=== PATIENT | female | born 1980 | race African-American/Black ===

== ENCOUNTER 2016-10-06 19:07 | Emergency (ER) | payer MEDICAID ==
[2016-10-06 20:16] LABS: ABSOLUTE BASOPHILS # (AUTO) 0.1 10^3/uL (0.0-0.2); ABSOLUTE EOSINOPHILS # (AUTO) 0.2 10^3/uL (0.0-0.6); ABSOLUTE LYMPHOCYTES (AUTO) 2.4 10^3/uL (0.5-4.7); ABSOLUTE MONOCYTES (AUTO) 0.5 10^3/uL (0.1-1.4); ABSOLUTE NEUT (AUTO) 6.6 10^3/uL (1.7-8.2); BASOPHILS % (AUTO) 0.7 % (0-2); EOSINOPHILS % (AUTO) 2.3 % (0-6); HEMOGLOBIN 13.4 g/dL (12.0-15.5); HGB HCT DIFFERENCE -0.8; LYMPHOCYTES % (AUTO) 24.6 % (13-45); MEAN CORPUSCULAR HGB CONC 32.7 g/dL (32.0-36.0); MEAN CORPUSCULAR VOLUME 95 fl (80-97); MONOCYTES % (AUTO) 5.2 % (3-13); RED BLOOD COUNT 4.33 10^6/uL (3.72-5.28); RED CELL DISTRIBUTION WIDTH 12.8 % (11.5-14.0); SEGMENTED NEUTROPHILS % (AUTO) 67.2 % (42-78); WHITE BLOOD COUNT 9.8 10^3/uL (4.0-10.5)
[2016-10-06 20:27] LABS: APPEARANCE,URINE SLIGHTLY-CLOUDY; BILIRUBIN,URINE NEGATIVE (NEGATIVE); GLUCOSE, URINE NEGATIVE (NEGATIVE); KETONES,URINE NEGATIVE (NEGATIVE); LEUKOCYTE ESTERASE,URINE TRACE (NEGATIVE); NITRITE,URINE NEGATIVE (NEGATIVE); PROTEIN,URINE 30 mg/dL (NEGATIVE); URINE SPECIFIC GRAVITY 1.024
[2016-10-06 20:34] LABS: ANION GAP 11 (5-19); BLOOD UREA NITROGEN 15 mg/dL (7-20); CALCIUM 9.8 mg/dL (8.4-10.2); CARBON DIOXIDE 25 mmol/L (22-30); CHLORIDE 106 mmol/L (98-107); CREATININE RESULT 0.88 mg/dL (0.52-1.25); GLUCOSE 87 mg/dL (75-110); POTASSIUM 4.2 mmol/L (3.6-5.0); SODIUM 141.8 mmol/L (137-145)
--- NOTE | 2016-10-06 20:38 | ER Document Report ---
ED GI/ - General Chief Complaint: Abdominal Pain Stated Complaint: ABDOMINAL PRESSURE Time Seen by Provider: 10/06/16 19:50 Mode of Arrival: Ambulatory TRAVEL OUTSIDE OF THE [place] IN LAST 30 DAYS: No - HPI Notes: 10/06/16 20:29 36-year-old black female with vaginal bleeding. She states she has always regular periods but at the same time her last one was regular on the third of last month but does not she has not had one in approximately 3 weeks. Developed some mild pain in her left suprapubic region that she describes as sharp that was short-lived and turned into pressure. She developed some discomfort again in the same area and again developed pressure. This is mild at this point. The pain does not radiate. She has had no vaginal discharge or fever. She denies dysuria or hematuria. She denies back pain. She does not believe she is . - Related Data Allergies/Adverse Reactions: diphenhydramine [From Benadryl] Adverse Reaction (Verified 10/06/16 19:32) Past Medical History - Social History Smoking Status: Never Smoker Family History: Reviewed & Not Pertinent Patient has suicidal ideation: No Patient has homicidal ideation: No Renal/ Medical History: Denies: Hx Peritoneal Dialysis Past Surgical History: Reports: Hx Section, Hx Tubal Ligation Review of Systems - Review of Systems -: Yes All other systems reviewed and negative Physical Exam - Vital signs Vitals: Temp Pulse Resp BP Pulse Ox 98.2 F 69 14 113/70 100 10/06/16 19:14 10/06/16 19:14 10/06/16 19:14 10/06/16 19:14 10/06/16 19:14 Interpretation: Normal - Notes Notes: GENERAL: VS as per nursing doc. Well-appearing, well-nourished and in no acute distress. HEAD: Atraumatic, normocephalic. EYES: No conjunctival injection or discharge. ENT: Nares patent, oropharynx clear without exudates, moist mucous membranes. NECK: Normal range of motion, supple without lymphadenopathy. LUNGS: Breath sounds clear to auscultation bilaterally and equal. No wheezes rales or rhonchi. HEART: Regular rate and rhythm without murmurs. ABDOMEN: Soft, minimal tenderness in the left suprapubic region. BACK: No CVA tenderness. EXTREMITIES: Normal range of motion, no calf tenderness, no edema. NEUROLOGICAL: Normal speech. Normal sensory and motor exams. PSYCH: Normal mood, normal affect. SKIN: Warm, dry, normal turgor, no lesions noted. Course - Re-evaluation Re-evalutation: 10/06/16 22:40 Findings with the patient. This included a right ovarian complex cyst and questionable fibroid. She does not have a service engineer currently so I provided her the name of Dr. Hardy for follow-up. She will call tomorrow to arrange understands the importance of cyst resolution and further evaluation and treatment. We will treat her urine as there is some question of infection with it. She has had no further significant bleeding here. - Vital Signs Vital signs: Temp Pulse Resp BP Pulse Ox 98.3 F 83 14 129/66 H 99 10/06/16 23:00 10/06/16 23:00 10/06/16 19:14 10/06/16 23:00 10/06/16 23:00 - Laboratory Result Diagrams: 10/06/16 19:55 10/06/16 19:55 Laboratory results interpreted by me: 10/06/16 19:55 Urine Protein 30 H Urine Blood LARGE H Urine Urobilinogen 4.0 H Ur Leukocyte Esterase TRACE H - Diagnostic Test Radiology reviewed: Image reviewed Discharge - Discharge Clinical Impression: Vaginal bleeding, abnormal, Fibroid, Cyst of right ovary Condition: Good Disposition: HOME, SELF-CARE Instructions: Vaginal Bleeding ([facility]) Additional Instructions: Return for worsening or concern. Referrals: MARIANELA VALERA DO [Primary Care Provider] - Follow up as needed VIDA CHACON MD [ACTIVE STAFF] - Follow up tomorrow
--- NOTE | 2016-10-06 22:27 | RADIOLOGY REPORT (SQ) ---
EXAM DESCRIPTION: U/S NON-OB PELVIS TV W/O DOP COMPLETED DATE/TIME: 10/06/2016 10:02 pm REASON FOR STUDY: LLQ pain/irreg vag bleeding COMPARISON: None. TECHNIQUE: Dynamic and static grayscale images acquired of the pelvis via transvaginal approach and recorded on PACS. Additional selected color Doppler and spectral images recorded. LIMITATIONS: None. FINDINGS: UTERUS: There is a heterogeneous area seen within in the uterus which could represent a fi broid. Multiple calcifications also noted within uterus. No other mass lesions are identified. The uterus is normal in size. ENDOMETRIAL STRIPE: No focal or generalized thickening. No masses. CERVIX: No nabothian cysts. RIGHT OVARY: Complex cyst noted measuring 1.5 x 1.4 x 1.2 cm. No other mass lesions are identified. RIGHT OVARY DOPPLER: Normal arterial vascular flow without evidence for torsion. LEFT OVARY: No abnormal masses. LEFT OVARY DOPPLER: Normal arterial vascular flow without evidence for torsion. FREE FLUID: None noted. OTHER: No other significant finding. MEASUREMENTS: UTERUS: 9.4 x 5.9 x 4.9 cm ENDOMETRIAL STRIPE: 8 mm RIGHT OVARY: 3.1 x 1.8 x 2.0 cm LEFT OVARY: 3.1 x 1.9 x 2.0 cm. IMPRESSION: 1. Heterogeneous area seen in the uterus could represent a fibroid. Multiple punctate c alcifications noted throughout. No other mass lesions identified. Endometrium is unremarkable. 2. Complex cyst noted in the right ovary. No evidence of ovarian torsion. No mass is seen in the l eft ovary. COMMENT: Premenopausal US Indeterminate-Single thin septation or focal wall calcification: Same as for benign cyst, based on size TECHNICAL DOCUMENTATION: JOB ID: [id number] [employer]- All Rights Reserved
[2016-10-06 23:05] VITALS: BP 129/66
== END 2016-10-06 23:05 | disposition home or self-care (01) ==
LOC: ER 19:07
DX: R10.9 Unspecified abdominal pain (principal); N93.8 Other specified abnormal uterine and vaginal bleeding; D21.9 Benign neoplasm of connective and other soft tissue, unspecified; N83.201 Unspecified ovarian cyst, right side; Z98.51 Tubal ligation status
CPT/HCPCS: 36415; 76830; 80048; 81001; 84702; 85025; 99284